=== PATIENT | female | born 1965 | race Caucasian/White ===

== ENCOUNTER → 2016-05-16 | Outpatient (CLI) | payer BC | LOC: US 05-10 13:30 | DX: N83.209 Unspecified ovarian cyst, unspecified side (principal); R10.2 Pelvic and perineal pain | CPT/HCPCS: 76830 ==

== ENCOUNTER → 2020-04-20 | Outpatient (CLI) | payer BC | LOC: EXRD 03-26 11:30 | DX: K90.0 Celiac disease (principal); K31.84 Gastroparesis; E55.9 Vitamin D deficiency, unspecified; F45.8 Other somatoform disorders; Z86.010 Personal history of colon polyps; M81.0 Age-related osteoporosis without current pathological fracture; M85.80 Other specified disorders of bone density and structure, unspecified site | CPT/HCPCS: 77080 ==